=== PATIENT | male | born 1975 | race Caucasian/White ===

== ENCOUNTER 2021-05-28 15:27 | Emergency (ER) | payer OTHER ==
[~2021-05-28] VITALS: Ht 167.6 cm; Wt 90.9 kg
[2021-05-28 16:41] LABS: BASO # 0.1 x10^3/uL (0.0-0.2); BASO % 1 % (0-3); EOS # 0.1 x10^3/uL (0.0-0.7); EOS % 1 % (0-3); HEMATOCRIT 39.8 % (39.0-53.0); HEMOGLOBIN 13.5 g/dL (13.0-17.5); LYMPH # 2.9 x10^3/uL (1.0-4.8); LYMPH % 32 % (24-48); MEAN CORPUSCULAR HEMOGLOBIN 28 pg (25-35); MEAN CORPUSCULAR HGB CONC 34 g/dL (31-37); MEAN CORPUSCULAR VOLUME 82 fL (79-100); MONO # 0.6 x10^3/uL (0.0-1.1); MONO % 7 % (0-9); NEUT # 5.6 x10^3/uL (1.8-7.7); NEUT % 60 % (31-73); PLATELET COUNT 340 x10^3/uL (140-400); RED BLOOD COUNT 4.83 x10^6/uL (4.30-5.70); RED CELL DISTRIBUTION WIDTH 15.5 % (11.5-14.5); WHITE BLOOD COUNT 9.3 x10^3/uL (4.0-11.0)
[2021-05-28 16:56] LABS: CALCIUM 8.3 mg/dL (8.5-10.1); GFR 81.6
--- NOTE | 2021-05-28 17:03 | RAD ---
AP chest x-ray HISTORY: Hypoxia. FINDINGS: Median sternotomy and coronary bypass surgery. Mild cardiomegaly. No pneumothorax, pulmonar y opacities or pleural effusions. IMPRESSION: No acute process evident. Electronically signed by: Juan Chung MD (05/28/2021 5:01 PM) [id number]
[2021-05-28 17:16] LABS: POTASSIUM 4.7 mmol/L (3.5-5.1)
[2021-05-28] MEDS ORDERED: IV RINGERS,LACTATED 500ML 1,000 ML IV ONE (17:30)
[2021-05-28] MEDS ORDERED: IV RINGERS,LACTATED 1000ML 1,000 ML IV ONE (18:00)
--- NOTE | 2021-05-28 18:32 | PHYS DOC ---
Past Medical History Past Medical History: CAD (MEL HORNE MD) Past Surgical History: Coronary Bypass Surgery Additional Past Surgical Histo: CABG (MEL HORNE MD) Smoking Status: Never Smoker Alcohol Use: Occasionally (MEL HORNE MD) General Adult EDM: Chief Complaint: ALCOHOL INTOXICATION HPI: HPI: Patient is a 45 year old male with history of CABG who presents with EMS intoxicated. Was playing in a golf tournament with his friends and had too much to drink. He was very intoxicated to his friends called for help. He only admits to drinking 4 drinks total (2 beers, and 2 whiskey drinks). He was hesitant to tell me how much he typically drinks. Denies any pain. Denies any falls or head trauma. Denies chest pain specifically. (MEL HORNE MD) Review of Systems: Review of Systems: Constitutional: Denies fever or chills. [] Eyes: Denies change in visual acuity. [] HENT: Denies nasal congestion or sore throat. [] Respiratory: Denies cough or shortness of breath. [] Cardiovascular: Denies chest pain or edema. [] GI: Denies abdominal pain, nausea, vomiting, bloody stools or diarrhea. [] : Denies dysuria. [] Musculoskeletal: Denies back pain or joint pain. [] Integument: Denies rash. [] Neurologic: Denies headache, focal weakness or sensory changes. [] Endocrine: Denies polyuria or polydipsia. [] Lymphatic: Denies swollen glands. [] Psychiatric: Denies depression or anxiety. [] (MEL HORNE MD) Heart Score: C/O Chest Pain: No Risk Factors: Risk Factors: DM, Current or recent (<one month) smoker, HTN, HLP, family history of CAD, obesity. Risk Scores: Score 0 - 3: 2.5% MACE over next 6 weeks - Discharge Home Score 4 - 6: 20.3% MACE over next 6 weeks - Admit for Clinical Observation Score 7 - 10: 72.7% MACE over next 6 weeks - Early Invasive Strategies (MEL HORNE MD) Current Medications: Current Medications Medications (Trade) Dose Ordered Sig/Buddy Start Time Stop Time Status Last Admin Dose Admin Ringer's Solution 1,000 ml @ 1,000 mls/hr 1X ONCE 05/28/21 18:00 05/28/21 18:59 (MEL HORNE MD) Allergies: Allergies: Allergies Coded Allergies Type Severity Reaction Last Updated Verified No Known Drug Allergies 05/28/21 No (MEL HORNE MD) Physical Exam: PE: Constitutional: Well developed, well nourished, no acute distress, non-toxic appearance. [] HENT: Normocephalic, atraumatic, bilateral external ears normal, oropharynx moist, no oral exudates, nose normal. [] Eyes: PERRLA, EOMI, conjunctiva normal, no discharge. [] Neck: Normal range of motion, no tenderness, supple, no stridor. [] Cardiovascular: Slight tachycardia. regular rhythm, no murmur [] Lungs & Thorax: Normal work of breathing. Bilateral breath sounds clear to auscultation [] Abdomen: Bowel sounds normal, soft, no tenderness, no masses, no pulsatile masses. [] Skin: Mild sunburns of face, neck, lower arms, and legs (uncovered areas of body). [] Back: No tenderness, no CVA tenderness. [] Extremities: No tenderness, no cyanosis, no clubbing, ROM intact, no edema. [] Neurologic: Alert and oriented X 3, normal motor function, normal sensory function, no focal deficits noted. [] Psychologic: Affect normal, judgement normal, mood normal. [] (MEL HORNE MD) Current Patient Data: Labs: Laboratory Tests Test 05/28/21 16:30 White Blood Count 9.3 x10^3/uL (4.0-11.0) Red Blood Count 4.83 x10^6/uL (4.30-5.70) Hemoglobin 13.5 g/dL (13.0-17.5) Hematocrit 39.8 % (39.0-53.0) Mean Corpuscular Volume 82 fL (79-100) Mean Corpuscular Hemoglobin 28 pg (25-35) Mean Corpuscular Hemoglobin Concent 34 g/dL (31-37) Red Cell Distribution Width 15.5 % (11.5-14.5) H Platelet Count 340 x10^3/uL (140-400) Neutrophils (%) (Auto) 60 % (31-73) Lymphocytes (%) (Auto) 32 % (24-48) Monocytes (%) (Auto) 7 % (0-9) Eosinophils (%) (Auto) 1 % (0-3) Basophils (%) (Auto) 1 % (0-3) Neutrophils # (Auto) 5.6 x10^3/uL (1.8-7.7) Lymphocytes # (Auto) 2.9 x10^3/uL (1.0-4.8) Monocytes # (Auto) 0.6 x10^3/uL (0.0-1.1) Eosinophils # (Auto) 0.1 x10^3/uL (0.0-0.7) Basophils # (Auto) 0.1 x10^3/uL (0.0-0.2) Sodium Level 149 mmol/L (136-145) H Potassium Level 4.7 mmol/L (3.5-5.1) Chloride Level 111 mmol/L (98-107) H Carbon Dioxide Level 27 mmol/L (21-32) Anion Gap 11 (6-14) Blood Urea Nitrogen 16 mg/dL (8-26) Creatinine 1.0 mg/dL (0.7-1.3) Estimated GFR (Cockcroft-Gault) 81.6 Glucose Level 105 mg/dL (70-99) H Calcium Level 8.3 mg/dL (8.5-10.1) L Ethyl Alcohol Level 362 mg/dL (0-10) H Laboratory Tests 05/28/21 16:30 Laboratory Tests 05/28/21 16:30 Vital Signs: Vital Signs Date Time Temp Pulse Resp B/P (MAP) Pulse Ox O2 Delivery O2 Flow Rate FiO2 05/28/21 17:59 100 106/79 (88) 92 Room Air 05/28/21 15:37 98.3 18 98.3 (MEL HORNE MD) EKG: EKG: [] (MEL HORNE MD) Radiology/Procedures: Radiology/Procedures: [] Impression: [facility] [address] [place] [address] IMAGING REPORT Signed PATIENT: MARIANNE MIGUEL ACCOUNT: [id number] : 1975 LOCATION: ER AGE: 45 SEX: M EXAM STATUS: PRE ER ORD. PHYSICIAN: MEL HORNE MD REASON: borderline low O2 sats 90-92 PROCEDURE: CHEST AP ONLY AP chest x-ray HISTORY: Hypoxia. FINDINGS: Median sternotomy and coronary bypass surgery. Mild cardiomegaly. No pneumothorax, pulmonary opacities or pleural effusions. IMPRESSION: No acute process evident. Electronically signed by: Cristel Chung MD (05/28/2021 5:01 PM) [id number] DICTATED and SIGNED BY: CRISTEL CHUNG MD DATE: 05/28/21 [id number] (MEL HORNE MD) Course & Med Decision Making: Course & Med Decision Making Pertinent Labs and Imaging studies reviewed. (See chart for details) Patient is a 45-year-old male with history of CABG who presents with EMS after he was reportedly very intoxicated at a golf event. Slurring his speech on arrival consistent with alcohol intoxication. Vital signs stable, SPO2 borderline low at 90-92%. Chest x-ray ordered, and did not show any acute process. SPO2 is remained stable during stay. Labs show a blood alcohol of 362. Hyponatremic to 149. 2 L of IV lactated Ringer's given for dehydration. Patient will require some time to clinically sober, but feel he can be safely discharged at that time. Signed out to oncoming physician with reevaluation pending. 183 (MEL HORNE MD) Course & Med Decision Making 2000: The patient has no medical complaints at this time and wishes to leave. The patient walks with a steady gait and is clinically sober. ED return precautions given. Patient understood. Afebrile and vital signs are hemodynamic ally stable. Patient is alert and oriented, no acute distress Warm and well perfused, pulses 2+ bilaterally No signs of respiratory distress Patient ambulated without assistance, motor strength grossly 5/5 in upper and lower extremities (MACIEJ BLANCO DO) Barber Disclaimer: Barber Disclaimer: This electronic medical record was generated, in whole or in part, using a voice recognition dictation system. (MEL HORNE MD) Departure Departure Impression: Primary Impression: Alcohol intoxication Additional Impression: Hypernatremia Disposition: HOME / SELF CARE / HOMELESS Condition: IMPROVED Referrals: NO PCP (PCP) Patient Instructions: Alcohol Problems MEL HORNE MD May 28, 2021 18:32 MACIEJ BLANCO DO May 28, 2021 19:56
[2021-05-28 19:29] VITALS: BP 93/60
== END 2021-05-28 20:19 | disposition home or self-care (01) ==
LOC: ER 15:27 → EDSEX 15:27 → ER 20:19
DX: F10.129 Alcohol abuse with intoxication, unspecified (principal); Y90.8 Blood alcohol level of 240 mg/100 ml or more; E87.0 Hyperosmolality and hypernatremia; I25.10 Atherosclerotic heart disease of native coronary artery without angina pectoris; Z95.1 Presence of aortocoronary bypass graft
CPT/HCPCS: 36415; 71045; 80048; 85025; 96360; 99285; G0480; J7120; 96361